=== PATIENT | female | born 1955 | race Caucasian/White ===

== ENCOUNTER 2024-10-16 17:27 | Inpatient (IN) | payer MEDICARE, OTHER ==
[~2024-10-16] VITALS: Ht 167.6 cm; Wt 75.0 kg
[~2024-10-16 17:27] MED LIST: ASPIR 8181 MG PO; LEVOTHYROXINE150 MCG PO; LOSARTAN POTASS25 MG; METFORMIN HCL500 MG PO; PROZAC40 MG PO; SIMVASTATIN5 MG
[2024-10-16] MEDS: ONDANSETRON HCL INJ 2MG/ML 2ML 2 MG/ML VIAL IV STA (19:03)
[2024-10-16] MEDS: SODIUM CHLORIDE 0.9% 1000ML 1,000 ML IV ONE ×2 (19:04→20:38)
[2024-10-16] MEDS: FAMOTIDINE 20 MG/2 ML VIAL IV STA (19:40)
[2024-10-16] MEDS: ONDANSETRON HCL INJ 2MG/ML 2ML 2 MG/ML VIAL IV PRN (22:53)
[2024-10-16] MEDS: Morphine 2mg Syringe 2 MG/ML SYR IV ONE (22:54)
[2024-10-16 22:55] VITALS: PULSE 90; RESP 17; TEMP 98.4
[2024-10-17] VITALS (15 sets, daily range): BP systolic 107–136; BP diastolic 55–81; PULSE 56–123; RESP 16–21; TEMP 97.4–98.9; O2SAT 96–100
[2024-10-17] MEDS: SODIUM CHLORIDE 0.9% 1000ML 1,000 ML IV SCH (00:43)
[2024-10-17] MEDS ORDERED: ACETAMINOPHEN 120 MG SUPP PR PRN (01:00)
[2024-10-17] MEDS ORDERED: HYDRALAZINE HCL 20 MG/ML VIAL IV PRN (01:00)
[2024-10-17] MEDS ORDERED: SYNTHROID100 MCG PO (01:01)
[2024-10-17] MEDS ORDERED: ONDANSETRON ODT4 MG PO (01:01)
[2024-10-17] MEDS ORDERED: MELOXICAM7.5 MG PO (01:01)
[2024-10-17] MEDS ORDERED: PRISTIQ ER50 MG PO (01:01)
[2024-10-17] MEDS ORDERED: WELLBUTRIN SR100 MG PO (01:01)
[2024-10-17] MEDS ORDERED: NORVASC2.5 MG PO (01:01)
[2024-10-17] MEDS ORDERED: IRBESARTAN150 MG PO (01:01)
[2024-10-17] MEDS ORDERED: OXYBUTYNIN CHLO10 MG PO (01:01)
[2024-10-17] MEDS: Morphine 2mg Syringe 2 MG/ML SYR IV PRN (04:58)
[2024-10-17 06:48] LABS: BASOPHILS % 0.1 % (0.0-1.0); EOSINOPHILS % 0.1 % (0.0-6.0); LYMPHOCYTES % 19.2 % (18.0-39.1); MONOCYTES % 12.2 % (4.4-11.3); NEUTROPHILS % 68.1 % (38.7-80.0); RED CELL DISTRIBUTION WIDTH 13.4 % (11.7-14.4)
[2024-10-17 07:05] LABS: CHOL/HDL RATIO 2.6 (3.0-3.6); EST GLOMERULAR FILTRATION RATE 93.0 ML/MIN (>=60); LDL CHOLESTEROL 86.0 MG/DL (60-130); PHOSPHORUS 3.2 MG/DL (2.3-4.7)
[2024-10-17] MEDS: MAGNESIUM SULFATE 2GM/50ML 50 ML IV ONE ×2 (09:41→11:20)
[2024-10-17] MEDS: BUPROPION HCL 100 MG TAB PO SCH (16:26)
[2024-10-17] MEDS ORDERED: AMIODARONE 900MG 900 MG in Premix Bag 1 BAG IV SCH (19:30)
[2024-10-17] MEDS ORDERED: PROMETHAZINE 25MG/ NS 50ML (IV) IV PRN (23:00)
[2024-10-17] MEDS: MELATONIN 3 MG TAB PO PRN (23:23)
[2024-10-17] MEDS: AMIODARONE 900MG 0 ML IV ONE (23:46)
[2024-10-17] MEDS: AMIODARONE HCL 150 MG/100 ML BAG IV ONE (23:46)
[2024-10-17] MEDS: MUPIROCIN 2% OINT 22 GM TUBE TOP SCH (23:48)
[2024-10-18] VITALS (15 sets, daily range): BP systolic 100–136; BP diastolic 41–79; PULSE 62–100; RESP 11–27; TEMP 97.8–98.3; O2SAT 97–100
[2024-10-18 05:10] LABS: BASOPHILS % 0.2 % (0.0-1.0); EOSINOPHILS % 0.5 % (0.0-6.0); LYMPHOCYTES % 18.7 % (18.0-39.1); MONOCYTES % 14.7 % (4.4-11.3); NEUTROPHILS % 65.7 % (38.7-80.0); RED CELL DISTRIBUTION WIDTH 13.4 % (11.7-14.4)
[2024-10-18] MEDS: LEVOTHYROXINE SODIUM 100 MCG TAB PO SCH (05:33)
[2024-10-18] MEDS: LEVOTHYROXINE SODIUM 75 MCG TAB PO SCH (05:33)
[2024-10-18 05:37] LABS: EST GLOMERULAR FILTRATION RATE 93.0 ML/MIN (>=60)
[2024-10-18] MEDS: OXYBUTYNIN CHLORIDE XL 5 MG TAB PO SCH (09:45)
[2024-10-18] MEDS: MELOXICAM 7.5 MG TAB PO SCH (09:45)
[2024-10-18] MEDS: AMLODIPINE BESYLATE 5 MG TAB PO SCH (09:45)
[2024-10-18] MEDS: DESVENLAFAXINE SUCCINATE 50 MG TAB.SR.24H PO SCH (09:45)
[2024-10-18] MEDS: METOPROLOL SUCCINATE 25 MG TAB XL PO SCH (10:45)
[2024-10-18] MEDS: IRBESARTAN 150 MG TAB PO SCH (10:45)
[2024-10-18] MEDS ORDERED: ONDANSETRON ODT4 MG PO (10:58)
[2024-10-18] MEDS ORDERED: TOPROL XL25 MG PO (10:58)
== END 2024-10-18 11:59 | disposition home or self-care (01) | DRG 389 ==
LOC: FSED 17:50 → ERHOLD 23:57 → MED/SURG 10-17 01:28 → ICU 10-17 21:42
PROVIDERS: ADMIT Internal Medicine; ATTEND Internal Medicine
DX: K56.609 Unspecified intestinal obstruction, unspecified as to partial versus complete obstruction (principal); K95.89 Other complications of other bariatric procedure; N39.0 Urinary tract infection, site not specified; R10.9 Unspecified abdominal pain; K22.2 Esophageal obstruction; R11.2 Nausea with vomiting, unspecified; F98.8 Other specified behavioral and emotional disorders with onset usually occurring in childhood and adolescence; G47.33 Obstructive sleep apnea (adult) (pediatric); F43.10 Post-traumatic stress disorder, unspecified; R13.10 Dysphagia, unspecified; R48.0 Dyslexia and alexia; L05.91 Pilonidal cyst without abscess; M17.11 Unilateral primary osteoarthritis, right knee; E86.0 Dehydration; D72.829 Elevated white blood cell count, unspecified; R31.29 Other microscopic hematuria; D64.9 Anemia, unspecified; E66.01 Morbid (severe) obesity due to excess calories; F32.9 Major depressive disorder, single episode, unspecified; E83.42 Hypomagnesemia; I49.9 Cardiac arrhythmia, unspecified; Z85.828 Personal history of other malignant neoplasm of skin; Z98.84 Bariatric surgery status; Z99.89 Dependence on other enabling machines and devices; Z91.048 Other nonmedicinal substance allergy status; Z79.82 Long term (current) use of aspirin; Z79.890 Hormone replacement therapy; Z87.891 Personal history of nicotine dependence
CPT/HCPCS: 36415; 74018; 74176; 80048; 80053; 80061; 80076; 83036; 83735; 84100; 84439; 84443; 85025; 87086; 93005; 94799; 96374; 96376; 99284; J1308; J2270; J2405; J3475; J7030